=== PATIENT | female | born 1990 | race Caucasian/White ===

== ENCOUNTER 2020-01-29 11:46 | Outpatient (CLI) | payer OTHER, SELFPAY ==
--- NOTE | 2020-01-29 11:58 | ECG_ITS ---
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 Interpretive Statements NAME OF STUDY: TREADMILL STRESS TEST INDICATION: Chest Pain Baseline blood pressure of 105/71 mm Hg, heart rate 58 beats per minute and oxygen saturation 97%. EKG showed normal sinus rhythm, rightward axis with normal ST-Ts. The patient exercised for 11 minutes on a standard Pascual protocol. Patient attained a maximum heart rate of 181 beats per minute(94 % of the maximum predicted heart rate) with a blood pressure at the peak exercise of 164/54 mm Hg. The EKG at the peak exercise revealed sinus tachycardia with no significant ST-T wave changes. Patient did not have any chest pain or any significant arrhythmis with the exercise During the recovery phase, there were no new changes. Blood pressure at the end of the recovery phase was 149/88 mm Hg with a heart rate of 86 beats per minute and oxygen saturation 97%. CONCLUSION: 1. Normal EKG response to treadmill exercise. 2. No exercise-induced chest pain or cardiac arrhythmia 3. Excellent exercise tolerance, attained a maximum of 13.5 METs. Maximum VO2 of 47.3 mL/kg/min. 4. Baseline normal blood pressure with normal response to exercise. Electronically Signed On 01-31-2020 14:03:47 CDT by Mya Uribe M.D. [id number]
[2020-01-29 12:41] VITALS: BP 149/88; PULSE 88; BMI 26.1
== END 2020-01-29 11:47 | disposition home or self-care (01) ==
LOC: CDL 11:47
PROVIDERS: Family Provider Nurse Practitioner Family; Visit Provider Nurse Practitioner Family
DX: R07.89 Other chest pain (principal); R07.9 Chest pain, unspecified
CPT/HCPCS: 93017

== ENCOUNTER → 2020-12-29 07:34 | Outpatient (BNVA) | payer OTHER, SELFPAY | PROVIDERS: Family Provider Nurse Practitioner Family; Visit Provider Psychiatry & Neurology Neurology | DX: F33.0 Major depressive disorder, recurrent, mild (principal); F41.1 Generalized anxiety disorder; F43.10 Post-traumatic stress disorder, unspecified | CPT/HCPCS: 90791 ==

== ENCOUNTER → 2021-03-05 15:54 | Outpatient (BNVA) | payer OTHER, SELFPAY | PROVIDERS: Family Provider Nurse Practitioner Family; Visit Provider Registered Nurse Neonatal Intensive Care | DX: M25.579 Pain in unspecified ankle and joints of unspecified foot (principal) | CPT/HCPCS: 73610 ==

== ENCOUNTER 2021-04-22 12:19 | Emergency (ER) | payer OTHER, SELFPAY ==
[2021-04-22 12:27] VITALS: BP 112/80; PULSE 74; RESP 18; TEMP 37.1; O2SAT 97; BMI 29.2
--- NOTE | 2021-04-22 12:46 | XRR_ITS ---
PROCEDURE INFORMATION: Exam: XR Chest Exam date and time: 04/22/2021 12:46 PM Age: 31 years old Clinical indication: Other: Parasternal; Patient HX: Patient had bilateral breast biopsies 04/21/2021. C/O shortness of breath and chest pain; Fever. Covid symptoms; Additional info: Dyspnea/cough TECHNIQUE: Imaging protocol: XR of the chest. Views: 1 view. COMPARISON: [place] Chest 1 [place] [id number] 07/31/2017 1:23 PM FINDINGS: Lungs: Unremarkable. No consolidation. Pleural spaces: Unremarkable. No pleural effusion. No pneumothorax. Heart/Mediastinum: Unremarkable. No cardiomegaly. Bones/joints: Unremarkable. XR/XR chest 1V portable [id number] IMPRESSION: No acute findings.
--- NOTE | 2021-04-22 12:46 | ECG_ITS ---
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 Measurements Intervals [place] Rate: 68 P: 64 NH: 154 QRS: 81 QRSD: 89 T: 39 QT: 392 QTc: 418 Interpretive Statements SINUS RHYTHM No previous ECG available for comparison Electronically Signed On 04-24-2021 19:17:09 CDT by Mya Uribe M.D. [id number] f
[2021-04-22 13:27] VITALS: PULSE 87; RESP 16; O2SAT 97
--- NOTE | 2021-04-22 13:39 | CTR_ITS ---
PROCEDURE INFORMATION: Exam: CTA Chest With Contrast Exam date and time: 04/22/2021 1:39 PM Age: 31 years old Clinical indication: Pain; Chest pressure; Patient HX: PT is 1 day S/P breast biopsynow w C/O cp and cough this a. M. ; Additional info: Dyspena/chest pain TECHNIQUE: Imaging protocol: Computed tomographic angiography of the chest with contrast. 3D rendering (Not supervised by radiologist): MIP and/or 3D reconstructed images were created by the technologist. Radiation optimization: All CT scans at this facility use at least one of these dose optimization techniques: automated exposure control; mA and/or kV adjustment per patient size (includes targeted exams where dose is matched to clinical indication); or iterative reconstruction. Contrast material: OMNI 350; Contrast volume: 62 ml; Contrast route: INTRAVENOUS (IV); COMPARISON: CR XR chest 1V portable [id number] 04/22/2021 1:47 PM RADIATION DOSE METRICS: Total DLP (mGy-cm): 485.48 FINDINGS: Pulmonary arteries: There is no pulmonary embolus. Aorta: Unremarkable. No aortic aneurysm. No aortic dissection. Lungs: There is very mild ground-glass opacity in the dependently lung parenchyma compatible with atelectasis, trace edema or trace pneumonitis. No lobar consolidation. Pleural spaces: Unremarkable. No pneumothorax. No pleural effusion. Heart: The heart is enlarged. Mediastinal space: A small hiatal hernia is present. Lymph nodes: Subcentimeter lymph nodes are noted in the left axilla with a few punctate foci of gas suspected to be from a lymph node biopsy. Bones/joints: Unremarkable. No acute fracture. Soft tissues: There is soft tissue edema, poorly marginated fluid, clip and gas in the right breast compatible with the history of recent biopsy. CT/CT angio chest PE protcl [id number] IMPRESSION: 1. There is no pulmonary embolus. 2. There is very mild ground-glass opacity in the dependently lung parenchyma compatible with atelectasis, trace edema or trace pneumonitis. 3. There are findings consistent with the recent right breast biopsy and probable left axillary lymph node biopsy. Radiation Dose CTDIVOL = (mGy): DLP = 485.48 (mGy-cm)
--- NOTE | 2021-04-22 13:39 | ED_ITS ---
HPI - Chest Pain General: Chief Complaint: Chest Pain Stated Complaint: CP, SOB; BIOPSY X 2 YESTERDAY/ Time Seen by Provider: 04/22/21 12:45 History of Present Illness: HPI narrative: 31-year-old female presents to the emergency room with complaints of chest pain and shortness of breath. Began this morning. She had a biopsies bilaterally to the breast yesterday. She has not previously had any blood clots she not on any coagulants. She denies any fever she has had a bit of a cough this morning. No diarrhea. She has been vaccinated x2 for Covid she is not previously had Covid that she is aware of. MD complaint: chest discomfort Onset (ago): hour(s) Timing of current episode: episodic Prior episodes: No Onset: during rest Pain location: parasternal Pain radiation: none Severity: mild Quality: sharp Relieving factors: rest and other (Hello breathing) Exacerbating factors: inspiration Context: other (Recently had bilateral breast biopsies) Associated symptoms: Reports fever(s); Deny abdominal pain, diaphoresis, dyspnea, leg edema, nausea, palpitations, sense of impending doom, syncope or vomiting Treatment prior to arrival: none Review of Systems Const: Reports: fever(s); Denies: diaphoresis ENMT: Denies: throat pain, ear or mastoid pain, nasal discharge or nasal congestion Card: Denies: palpitations or syncope Resp: Denies: dyspnea GI: Denies: abdominal pain, nausea or vomiting : Denies: flank pain, difficulty voiding, dysuria, urinary frequency or urinary urgency Skin/Breast: Denies: rash or pruritus PFS ED PFSH: Social History Smoking and tobacco status: never smoked Physical Exam Const: COMMON NORMALS: no acute distress GENERAL APPEARANCE: cooperative and comfortable ORIENTATION/CONSCIOUSNESS: Yes awake, Yes oriented to person, Yes oriented to place and Yes oriented to time HENMT: COMMON NORMALS: normocephalic, atraumatic, hearing grossly normal bilaterally, external ears normal, EAC's normal, TM's normal bilaterally, Normal nasal mucous membranes and turbinates present, moist oral mucous membranes and oropharynx normal HEAD & SCALP: normocephalic and atraumatic NOSE: Normal nasal mucous membranes and turbinates present EXTERNAL EAR: Yes external ears normal EXTERNAL AUDITORY CANAL: EAC's normal TYMPANIC MEMBRANE: TM's normal bilaterally Neck/C-Spine: COMMON NORMALS: no JVD Resp: COMMON NORMALS: normal respiratory effort, No retractions, No use of accessory muscles and clear to auscultation bilaterally AUSCULTATION: clear to auscultation bilaterally Cardio: COMMON NORMALS: no JVD, regular rate, regular rhythm and No murmurs present (Cardio) RATE: regular rate RHYTHM: regular rhythm GI: COMMON NORMALS: Soft to palpation and No hepatosplenomegaly present AUSCULTATION: Yes normoactive bowel sounds PALPATION: Yes Soft to palpation, No Tenderness to palpation present (GI), No Guarding due to palpation present (GI) and Yes No hepatosplenomegaly present Extremity: COMMON NORMALS: normal to inspection, capillary refill normal, no clubbing, cyanosis or edema, no calf tenderness and no pedal edema Neuro: SENSORIUM/ORIENTATION: Yes oriented to person, Yes oriented to place and Yes oriented to time Skin: COMMON NORMALS: no rashes or lesions noted GENERAL SKIN EXAM: no rashes or lesions noted Course Vital Signs: Vital signs: Vital Signs Temperature 98.8 F 04/22/21 12:27 Pulse Rate 87 04/22/21 13:27 Respiratory Rate 16 04/22/21 13:27 Blood Pressure 112/80 04/22/21 12:27 Pulse Oximetry 97 04/22/21 13:27 MDM - Chest Pain MDM Narrative: Medical decision making narrative: Labs and imaging reviewed as on the chart. CT shows early groundglass opacities. Patient is doing well. She only has a cough at this point. Her sats are normal. Seems to be more pleuritic chest pain there is no PE. Suspect she probably has Covid self quarantine until results are back reviewed with her Lab Data: Labs: Lab Results 04/22/21 04/22/21 Range/Units 13:30 13:30 WBC 4.8 (4.0-10.0) 10^3/ uL RBC 4.30 (4.1-5.3) 10^6/u L Hgb 12.9 (11.5-15.3) g/dL Hct 41.8 (37.0-47.0) % MCV 97.2 (81-99) fl MCH 30.0 (28.0-34.0) pg MCHC 30.9 (30.0-36.0) g/dL RDW 18.3 H (12.1-15.1) % Plt Count 207 (130-400) 10^3/c mm MPV 11.3 H (7.4-10.4) fL Neut % (Auto) 43.0 % Lymph % (Auto) 42.1 % [place] % (Auto) 7.9 % Eos % (Auto) 6.0 % Baso % (Auto) 0.8 % Neut # (Auto) 2.08 (1.8-7.7) 10^3/u L Lymph # (Auto) 2.0 (0.8-4.8) 10^3/u L [place] # (Auto) 0.4 (0.2-0.9) 10^3/u L Eos # (Auto) 0.3 (0.0-0.8) 10^3/u L Baso # (Auto) 0.0 (0.0-0.1) 10^3/u L Nucleated RBC % (a uto) 0 % Nucleated RBCs # 0.0 /100WBC Sodium 142 (136-145) mmol/L Potassium 4.0 (3.5-5.1) mmol/L Chloride 104 (98-107) mmol/L Carbon Dioxide 31 H (22-29) mmol/L Anion Gap 11.0 (5-19) BUN 12 (6-20) mg/dL Creatinine 0.8 (0.5-0.9) mg/dL GFR Calculation 84.2 L (90-130) mL/min Glucose 64 L (65-115) mg/dL Calculated Osmolal ity 292 (285-295) mOsm/k g Calcium 8.9 (8.5-10.5) mg/dL Total Bilirubin 0.5 (0.15-1.2) mg/dL AST 17 (0-32) U/L ALT 12 (0-33) U/L Alkaline Phosphata se 81 (35-105) IU/L Total Protein 6.6 (6.6-8.7) g/dL Albumin 4.1 (3.5-5.2) g/dL Globulin 2.5 (1.3-4.6) g/dL Discharge Plan Discharge Patient Disposition: Home Clinical Impression: COVID-19 Condition: Stable Prescriptions: No Action alprazolam [Xanax] 0.25 mg tablet 0.25 mg PO BID RF: 0 Latuda 40 mg tablet 40 mg PO DAILY RF: 0 Discharge Orders: Discharge ED (Routine); Ordered 04/22/21 Ordered By: Angel Lin Referrals: Alissa Conte [Primary Care Provider] - Discharge Diet: Usual diet Discharge Activity: Increase activity as tolerated Patient Instructions: Opioid Safety Coding Level of Care Code ED 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
[2021-04-22 14:02] LABS: Basophils % 0.8 %; Eosinophils # 0.3 10^3/uL (0.0-0.8); Hematocrit 41.8 % (37.0-47.0); Hemoglobin 12.9 g/dL (11.5-15.3); Lymphocytes % 42.1 %; Mean Corpuscular HGB Conc 30.9 g/dL (30.0-36.0); Mean Corpuscular Volume 97.2 fl (81-99); Mean Platelet Volume 11.3 fL (7.4-10.4); Monocytes # 0.4 10^3/uL (0.2-0.9); Monocytes % 7.9 %; Neutrophils # 2.08 10^3/uL (1.8-7.7); Nucleated Red Blood Cells % 0 %; Platelet Count 207 10^3/cmm (130-400); Red Cell Distribution Width 18.3 % (12.1-15.1); White Blood Count 4.8 10^3/uL (4.0-10.0)
[2021-04-22] MEDS: iohexol 350 mg/mL 100 mL Btl IV (14:35)
[2021-04-22 14:46] LABS: Alanine Aminotransferase 12 U/L (0-33); Albumin Level 4.1 g/dL (3.5-5.2); Alkaline Phosphatase 81 IU/L (35-105); Aspartate Amino Transferase 17 U/L (0-32); Blood Urea Nitrogen 12 mg/dL (6-20); Calcium 8.9 mg/dL (8.5-10.5); Carbon Dioxide 31 mmol/L (22-29); Chloride 104 mmol/L (98-107); Globulin 2.5 g/dL (1.3-4.6); Glomerular Filtration Rate 84.2 mL/min (90-130); Glucose 64 mg/dL (65-115); Osmolality Calculated 292 mOsm/kg (285-295); Sodium 142 mmol/L (136-145); Total Bilirubin 0.5 mg/dL (0.15-1.2); Total Protein 6.6 g/dL (6.6-8.7)
[2021-04-22 18:03] LABS: SARS Covid-2 Antigen Negative (Negative)
[2021-04-24 16:59] LABS: Quest SARS-CoV-2 RNA NOT DETECTED (NOT DETECTED)
== END 2021-04-22 17:10 | disposition home or self-care (01) ==
PROVIDERS: Emergency Provider Family Medicine; PCP Nurse Practitioner Family
DX: U07.1 COVID-19 (principal)
CPT/HCPCS: 71045; 71275; 80053; 85025; 87426; 87635; 93005; 99283; Q9967

== ENCOUNTER 2022-03-02 07:06 | Outpatient (CLI) | payer OTHER, SELFPAY ==
--- NOTE | 2022-03-02 07:28 | MR_ITS ---
WS: [id number] MRI BRAIN WITH HIGH-RESOLUTION IMAGING THROUGH THE INTERNAL AUDITORY CANALS WITHOUT AND WITH CONTRAST HISTORY: SENSORINEURAL HEARING loss, tinnitus., Bilateral. COMPARISON: Noncontrast CT head 07/31/2017 TECHNIQUE: Multiplanar, multisequence imaging is performed through the brain. Additional 3 mm imaging performed in multiple planes through the internal auditory canal. Postcontrast imaging with 10 ml's of ProHance. No acute intracranial hemorrhage, midline shift, edema or mass effect. No prior infarct or signal abnormality. Nonenhancing markedly intense T1 signal posterior to the infundibulum and hypothalamus. There is no e nhancement in this follows fat signal on all sequences and is most consistent with a small lipoma in the hypothalamus. The pituitary bright spot appears to be in normal position. Signal abnormality exte nds over a width of 16 mm x 5 mm. Most consistent with a hypothalamic lipoma. Ventricles and extra-axial spaces are normal. No inferior displacement of cerebellar tonsils. Internal and external auditory canals: Unremarkable. Cranial nerves VII and VIII complexes: Unremarkable. No enhancement or mass. Cerebellopontine angles: Normal. Paranasal sinuses: Normal. Mastoid air cells: Normal. Calvarium and scalp: Normal. Visualized campo of [place] and dural venous sinuses demonstrate no abnormality. MR/MR iac's wo/w con* [id number] IMPRESSION: 1. Normal internal auditory canals. No mass or signal abnormality. 2. Small hypothalamic lipoma. 3. No small vessel ischemic disease.
== END 2022-03-02 07:07 | disposition home or self-care (01) ==
PROVIDERS: PCP Nurse Practitioner Family; Visit Provider Specialist
DX: H90.3 Sensorineural hearing loss, bilateral (principal); H93.13 Tinnitus, bilateral; D17.9 Benign lipomatous neoplasm, unspecified
CPT/HCPCS: 70553

== ENCOUNTER → 2022-05-21 10:17 | Outpatient (BNVA) | payer OTHER, SELFPAY | PROVIDERS: PCP Nurse Practitioner Family; Visit Provider Emergency Medicine | DX: J02.9 Acute pharyngitis, unspecified (principal) | CPT/HCPCS: 87071; 87880 ==

== ENCOUNTER 2023-03-22 12:47 | Outpatient (CLI) | payer OTHER, SELFPAY ==
--- NOTE | 2023-03-22 12:59 | XR_ITS ---
WS: [id number] XR lumbar spine 2-3V* [id number] REASON FOR EXAM: lumbar back pain x 1 day FINDINGS: Normal lumbar spine curvatures. No abnormality of the lumbar vertebrae. Mild to moderate narrowing of the L5/L1 disc space. The remaining disc spaces are intact and relative ly well preserved. No spondylolysis. 3 to 4 mm of anterolisthesis of L5 in relation to L4. IMPRESSION: Degenerative spondylosis of the lumbar spine as above.
== END 2023-03-22 12:48 | disposition home or self-care (01) ==
PROVIDERS: PCP Nurse Practitioner Family; Visit Provider Nurse Practitioner
DX: M47.896 Other spondylosis, lumbar region (principal); M54.50 Low back pain, unspecified
CPT/HCPCS: 72100

== ENCOUNTER 2023-05-15 19:18 | Emergency (ER) | payer OTHER, SELFPAY ==
[2023-05-15 19:20] VITALS: BP 125/88; PULSE 86; RESP 17; TEMP 36.9; O2SAT 100; BMI 27.3
--- NOTE | 2023-05-15 19:28 | ECG_ITS ---
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 Measurements Intervals [place] Rate: 76 P: 71 MI: 152 QRS: 86 QRSD: 80 T: 46 QT: 349 QTc: 394 Interpretive Statements SINUS RHYTHM LEFT ATRIAL ENLARGEMENT [-0.15mV P-WAVE IN V1/V2] MODERATE T-WAVE ABNORMALITY, CONSIDER ANTERIOR ISCHEMIA [-0.1+ mV T-WAVE IN V3/V4] Compared to ECG 04/22/2021 15:53:26 Atrial abnormality now present T-wave abnormality now present Possible ischemia now present Electronically Signed On 05-15-2023 22:33:23 CDT by Hong Harvey M.D. [id number] f
--- NOTE | 2023-05-15 19:41 | XRR_ITS ---
PROCEDURE INFORMATION: Exam: XR Chest Exam date and time: 05/15/2023 7:56 PM Age: 33 years old Clinical indication: Chest wall pain; Additional info: Chest pain TECHNIQUE: Imaging protocol: Radiologic exam of the chest. Views: 1 view. COMPARISON: CR XR chest 1V portable [id number] 04/22/2021 1:47 PM FINDINGS: Lungs: Mild atelectasis in the lung bases. The lungs are otherwise clear. Pleural spaces: Unremarkable. No pleural effusion. No pneumothorax. Heart/Mediastinum: Unremarkable. No cardiomegaly. Bones/joints: Unremarkable. XR/XR chest 1V portable [id number] IMPRESSION: No acute findings.
--- NOTE | 2023-05-15 19:41 | W.ED.CHESTPA ---
HPI - Chest Pain General: Chief Complaint: Chest Pain Stated Complaint: chest pain, tightness in chest Time Seen by Provider: 05/15/23 19:22 History of Present Illness: 33-year-old female presents emerged department complaints of lower right chest pain and intermittent right scapular pain. She states the pain started approximate hour prior to arrival. She states that it is a 6 out of 10 sharp stabbing pain. She denies nausea, vomiting, shortness of breath dizziness or lightheaded feeling. She states she does have a lot of stress in her life and recently had a family member . She states nothing seems to make this discomfort better and nothing seems to make it worse. She states she does have a history of bipolar disorder as well as intermittent panic attacks. She states she feels like this may very well be a panic attack causing her discomfort. Review of Systems General: Reports: 10 or more systems reviewed and unremarkable except in HPI and below Card: Reports: chest pain PFS ED PFSH: Medical History Psychiatric care Social History Smoking and tobacco status: never smoked Second hand smoke exposure: No Smoking risk assessment/counseling performed?: No Alcohol intake: current Alcohol intake frequency: holidays/special occasions only Alcohol type: wine Desire information about alcohol rehabilitation?: No Counseling given: No Substance/Drug Use: never Desire information about substance/drug rehabilitation?: No Counseling given: No Physical Exam Const: COMMON NORMALS: no acute distress, patient oriented x3 and alert HENMT: COMMON NORMALS: normocephalic, atraumatic, Normal nasal mucous membranes and turbinates present and moist oral mucous membranes HEAD & SCALP: normocephalic and atraumatic NOSE: Normal nasal mucous membranes and turbinates present Eye: COMMON NORMALS: Equal, round and reactive pupils present and EOMs intact bilaterally PUPIL: Yes Equal, round and reactive pupils present Neck/C-Spine: COMMON NORMALS: full ROM, supple, no meningeal signs and no JVD Chest: COMMONS NORMALS: normal inspection of the chest and normal palpation of entire chest wall Resp: COMMON NORMALS: normal respiratory effort, No retractions and clear to auscultation bilaterally AUSCULTATION: clear to auscultation bilaterally Cardio: COMMON NORMALS: no JVD, regular rate, regular rhythm, S1 normal heart sound present, S2 normal heart sound present and Peripheral pulses 2+ throughout RATE: regular rate RHYTHM: regular rhythm HEART SOUNDS: S1 normal heart sound present and S2 normal heart sound present PERIPHERAL PULSES: Peripheral pulses 2+ throughout GI: COMMON NORMALS: Normal to inspection, nondistended, normoactive bowel sounds present, Soft to palpation and non-tender PALPATION: Yes Soft to palpation Back/Pelvis: COMMON NORMALS: thoracic and lumbar spine normal to inspection, no thoracic nor lumbar tenderness, thoraco-lumbar ROM normal and straight leg raise negative bilaterally Extremity: COMMON NORMALS: normal to inspection, full ROM and capillary refill normal Neuro: COMMON NORMALS: patient oriented x3, moves all extremities and no sensory deficits noted SENSORIUM/ORIENTATION: Yes alert MENINGEAL SIGNS: Yes no meningeal signs Skin: COMMON NORMALS: no rashes or lesions noted and turgor normal GENERAL SKIN EXAM: no rashes or lesions noted and turgor normal Course Vital Signs: Vital signs: Vital Signs Temperature 98.4 F 05/15/23 19:20 Pulse Rate 86 05/15/23 19:20 Respiratory Rate 17 05/15/23 19:20 Blood Pressure 125/88 05/15/23 19:20 Pulse Oximetry 100 05/15/23 19:20 Oxygen Delivery Me thod Room Air 05/15/23 19:20 MDM - Chest Pain Medical Decision Making Physical exam completed and documented, I will obtain twelve-lead EKG, chest x-ray and laboratory evaluation I suspect this is most likely related to the patient's increased stress and we will have her follow-up with her primary care provider as all results come back unless otherwise found to have abnormalities. Differential Diagnosis Likely acute myocardial infarction (Anxiety, panic attack, musculoskeletal pain.) Medical Records I reviewed the patient's medical records. Lab Data I reviewed the patient's lab results. 05/15/23 19:51 05/15/23 19:51 Radiology Impressions Chest X-Ray 05/15/23 19:41 IMPRESSION: No acute findings. Laboratory Results WBC 6.22 10^3/uL (3.29-11.43) 05/15/23 19:51 RBC 4.53 10^6/uL (3.85-5.65) 05/15/23 19:51 Hgb 13.90 g/dL (11.27-16.99) 05/15/23 19:51 Hct 39.5 % (36-47) 05/15/23 19:51 MCV 87.2 fl (85-98) 05/15/23 19:51 MCH 30.7 pg (27-33) 05/15/23 19:51 MCHC 35.2 g/dL (30-55) 05/15/23 19:51 RDW 11.9 % (12.1-15.1) L 05/15/23 19:51 Plt Count 242 10^3/cmm (157-399) 05/15/23 19:51 MPV 10.3 fL (7.4-10.4) 05/15/23 19:51 Neut % (Auto) 38.1 % 05/15/23 19:51 Lymph % (Auto) 48.7 % 05/15/23 19:51 [place] % (Auto) 7.6 % 05/15/23 19:51 Eos % (Auto) 4.8 % 05/15/23 19:51 Baso % (Auto) 0.8 % 05/15/23 19:51 Neut # (Auto) 2.37 10^3/uL (1.8-7.7) 05/15/23 19:51 Lymph # (Auto) 3.0 10^3/uL (0.8-4.8) 05/15/23 19:51 [place] # (Auto) 0.5 10^3/uL (0.2-0.9) 05/15/23 19:51 Eos # (Auto) 0.3 10^3/uL (0.0-0.8) 05/15/23 19:51 Baso # (Auto) 0.1 10^3/uL (0.0-0.1) 05/15/23 19:51 Nucleated RBC % (auto) 0 % 05/15/23 19:51 Nucleated RBCs # 0.0 /100WBC 05/15/23 19:51 Sodium 142 mmol/L (136-145) 05/15/23 19:51 Potassium 3.9 mmol/L (3.5-5.1) 05/15/23 19:51 Chloride 104 mmol/L (98-107) 05/15/23 19:51 Carbon Dioxide 27 mmol/L (22-29) 05/15/23 19:51 Anion Gap 14.9 (5-19) 05/15/23 19:51 BUN 16 mg/dL (6-20) 05/15/23 19:51 Creatinine 1.0 mg/dL (0.5-0.9) H 05/15/23 19:51 GFR Calculation 64.3 mL/min (90-130) L 05/15/23 19:51 Glucose 85 mg/dL (65-115) 05/15/23 19:51 Calculated Osmolality 294 mOsm/kg (285-295) 05/15/23 19:51 Calcium 9.4 mg/dL (8.5-10.5) 05/15/23 19:51 Total Bilirubin 0.3 mg/dL (0.15-1.2) 05/15/23 19:51 AST 18 U/L (0-32) 05/15/23 19:51 ALT 13 U/L (0-33) 05/15/23 19:51 Alkaline Phosphatase 94 U/L (35-105) 05/15/23 19:51 Troponin T Baseline < 6 ng/L (0-10) 05/15/23 19:51 Total Protein 7.2 g/dL (6.6-8.7) 05/15/23 19:51 Albumin 4.8 g/dL (3.5-5.2) 05/15/23 19:51 Globulin 2.4 g/dL (1.3-4.6) 05/15/23 19:51 HCG, Qual Negative (Negative) 05/15/23 19:41 Urine Color Yellow (Yellow) 05/15/23 19:41 Urine Appearance Clear (CLEAR) 05/15/23 19:41 Urine pH 6 (5-7) 05/15/23 19:41 Ur Specific [place] 1.030 (1.005-1.030) 05/15/23 19:41 Urine Protein Neg (Negative) 05/15/23 19:41 Urine Glucose (UA) Norm (Normal) 05/15/23 19:41 Urine Ketones Negative (Negative) 05/15/23 19:41 Urine Blood Neg (Negative) 05/15/23 19:41 Urine Nitrate Negative (Negative) 05/15/23 19:41 Urine Bilirubin Neg (Negative) 05/15/23 19:41 Urine Urobilinogen Norm mg/dL (Negative) 05/15/23 19:41 Ur Leukocyte Esterase Negative (Negative) 05/15/23 19:41 All radiology interpretation(s) finalized by discharge ED provider radiology interpretation(s): FINDINGS: Lungs: Mild atelectasis in the lung bases. The lungs are otherwise clear. Pleural spaces: Unremarkable. No pleural effusion. No pneumothorax. Heart/Mediastinum: Unremarkable. No cardiomegaly. Bones/joints: Unremarkable. 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
[2023-05-15 19:57] LABS: Basophils # 0.1 10^3/uL (0.0-0.1); Basophils % 0.8 %; Eosinophils # 0.3 10^3/uL (0.0-0.8); Eosinophils % 4.8 %; Hematocrit 39.5 % (36-47); Lymphocytes % 48.7 %; Mean Corpuscular HGB Conc 35.2 g/dL (30-55); Mean Corpuscular Hemoglobin 30.7 pg (27-33); Mean Corpuscular Volume 87.2 fl (85-98); Mean Platelet Volume 10.3 fL (7.4-10.4); Monocytes # 0.5 10^3/uL (0.2-0.9); Monocytes % 7.6 %; Neutrophils # 2.37 10^3/uL (1.8-7.7); Neutrophils % 38.1 %; Nucleated Red Blood Cells % 0 %; Platelet Count 242 10^3/cmm (157-399); Red Blood Count 4.53 10^6/uL (3.85-5.65); Red Cell Distribution Width 11.9 % (12.1-15.1); White Blood Count 6.22 10^3/uL (3.29-11.43)
[2023-05-15] MEDS: ketorolac 30 mg/mL INJ IVP (20:00)
[2023-05-15 20:06] LABS: HCG Qualitative Urine. Negative (Negative)
[2023-05-15 20:18] LABS: Add Urine Microscopic? NO; Charge for UA Resulting for Rev
[2023-05-15 20:19] LABS: Alanine Aminotransferase 13 U/L (0-33); Albumin Level 4.8 g/dL (3.5-5.2); Alkaline Phosphatase 94 U/L (35-105); Anion Gap 14.9 (5-19); Aspartate Amino Transferase 18 U/L (0-32); Blood Urea Nitrogen 16 mg/dL (6-20); Calcium 9.4 mg/dL (8.5-10.5); Carbon Dioxide 27 mmol/L (22-29); Chloride 104 mmol/L (98-107); Globulin 2.4 g/dL (1.3-4.6); Glomerular Filtration Rate 64.3 mL/min (90-130); Glucose 85 mg/dL (65-115); Osmolality Calculated 294 mOsm/kg (285-295); Potassium 3.9 mmol/L (3.5-5.1); Sodium 142 mmol/L (136-145); Total Bilirubin 0.3 mg/dL (0.15-1.2); Total Protein 7.2 g/dL (6.6-8.7)
[2023-05-15 20:20] LABS: Bilirubin Urine Neg (Negative); Blood Urine Neg (Negative); Glucose Urine UA Norm (Normal); Ketones Urine Negative (Negative); Leukocyte Esterase Urine Negative (Negative); Nitrate Urine Negative (Negative); Protein Urine Neg (Negative); Urine Appearance Clear (CLEAR); Urine Color Yellow (Yellow); Urobilinogen Urine Norm (Negative); pH Urine 6 (5-7)
[2023-05-15 20:21] LABS: Troponin(5th) Baseline < 6 ng/L (0-10)
== END 2023-05-15 21:45 | disposition home or self-care (01) ==
PROVIDERS: Emergency Provider Internal Medicine; PCP Nurse Practitioner Family
DX: R07.89 Other chest pain (principal)
CPT/HCPCS: 71045; 80053; 81003; 81025; 84484; 85025; 93005; 96374; 99285; J1885

== ENCOUNTER → 2023-06-13 17:49 | Outpatient (BNVA) | payer OTHER, SELFPAY | PROVIDERS: PCP Nurse Practitioner Family; Visit Provider Nurse Practitioner | DX: R05.9 Cough, unspecified (principal) | CPT/HCPCS: 87400; 87426 ==

== ENCOUNTER → 2023-09-26 14:50 | Outpatient (BNVA) | payer OTHER, SELFPAY | PROVIDERS: PCP Nurse Practitioner Family; Visit Provider Registered Nurse Neonatal Intensive Care | DX: J02.9 Acute pharyngitis, unspecified (principal) | CPT/HCPCS: 87880 ==

== ENCOUNTER → 2024-09-15 07:54 | Outpatient (BNVA) | payer OTHER, SELFPAY | PROVIDERS: PCP Nurse Practitioner Family; Visit Provider Emergency Medicine | DX: J10.1 Influenza due to other identified influenza virus with other respiratory manifestations (principal) | CPT/HCPCS: 87400 ==

== ENCOUNTER 2025-07-12 07:53 | Outpatient (CLI) | payer OTHER, SELFPAY ==
--- NOTE | 2025-07-12 08:08 | NM_ITS ---
WS: [id number] NUCLEAR MEDICINE HIDA SCAN WITH GALLBLADDER EJECTION FRACTION HISTORY: RUQ PAIN COMPARISON: None available. TECHNIQUE: The patient was intravenously injected with 7.7 mCi of TC99m Mebrofenin. Immediate imaging over the right upper quadrant was followed by 5 minute image and additional images for a total of 60 minutes. Normal uptake of radiotracer throughout the liver. Activity identified in the gallbladder at 15 minutes and well distended by 60 minutes. Activity in the proximal small bowel was seen by 20 minutes. Good washout of the radiotracer from the liver by 60 minutes. The patient then drank 8 ounces of Ensure Plus. Ejection fraction at 60 minutes was 77%. Normal GB ejection fraction is 35-75%. Post fatty meal symptoms: None. NM/NM hepatobiliary w phar* [id number] IMPRESSION: 1. Normal HIDA scan. 2. Normal gallbladder ejection fraction.
== END 2025-07-12 07:54 | disposition home or self-care (01) ==
PROVIDERS: PCP Nurse Practitioner Family; Visit Provider Nurse Practitioner Family
DX: K52.9 Noninfective gastroenteritis and colitis, unspecified (principal); R10.11 Right upper quadrant pain
CPT/HCPCS: 78227; A9537

== ENCOUNTER 2025-07-14 11:31 | Emergency (ER) | payer OTHER, SELFPAY ==
[2025-07-14] VITALS (8 sets, daily range): BP systolic 97–121; BP diastolic 56–84; PULSE 104–133; RESP 18; TEMP 37.5; O2SAT 94–100; BMI 23.3
--- NOTE | 2025-07-14 11:38 | CT_ITS ---
WS: [id number] CT HEAD TECHNIQUE: Noncontrast CT of the head obtained from the skullbase to the vertex. CLINICAL INFORMATION: Headache vision changes COMPARISON: CT head 2016 and MRI 2021 DLP: 1164.[address] scans at [facility] use at least one of these dose optimization techniques: automated exposure control; mA and/or kV adjustment per patient size (includes targeted exams where dose is matched to clinical indication); or iterative reconstruction. FINDINGS: No evidence of intracranial hemorrhage or mass effect. Ventricular system and basal cisterns are patent. No extra-axial fluid collections. No evidence of mass or mass effect. Normal friedman-white differentiation. Paranasal sinuses and mastoid air cells are well aerated. .Normal visualized soft tissues. CT/CT head wo con* [id number] IMPRESSION: 1. No evidence of intracranial hemorrhage or mass effect. 2. No acute intracranial findings.
--- NOTE | 2025-07-14 12:23 | ED_ITS ---
HPI - Headache 2 General: Chief Complaint: Headache Stated Complaint: feels like she is being hit in head,blurred vision Time Seen by Provider: 07/14/25 11:41 History of Present Illness: 35-year-old female presents emergency ro om with complaint of headaches. She used to have headaches that were fairly severe but she has not had one for nearly 7 or 8 years. No precipitating event or trauma. Describes headaches as being based around the right occipital region she has some mild photophobia with that and nausea. She states she feels like something is hitting her head began at night around 2 AM woke her up from sleep. She has tried some [id number] medications with no relief. No vomiting. She has had unexplained weight loss of the last year of nearly 50 pounds and is in the process of having a workup but they have not found any cause to this point. She denies any fever sweats chills nausea vomiting diarrhea no chest or abdominal pain. She previously has had a hysterectomy had a pyloric stenosis and thinks she may have had intussusception when she was younger. Associated symptoms: Deny chest pain, fever(s) or rash Related Data Home Medications ?Medication ?Instructions ?Recorded ?Confirmed acetaminophen 500 mg tablet 500 mg PO Q6H PRN Pain 11/0307/16/25 albuterol sulfate 90 mcg/actuation See Rx Instructions .Route .COMPLEX 07/14/25 07/16/25 aerosol inhaler alprazolam 0.5 mg tablet 0.5 mg PO DAILY PRN Anxiety 07/14/25 07/16/25 diclofenac sodium 1 % topical gel See Rx Instructions .Route .COMPLEX 07/14/25 07/16/25 naproxen sodium 220 mg tablet 220 mg PO Q12H PRN Pain 07/14/25 07/16/25 (Aleve) Allergies Allergy/AdvReac Type Severity Reaction Status Date / Time levofloxacin (From Levaquin) Allergy Severe whole body Verified 07/16/25 18:21 rash tramadol Allergy Severe seizures Verified 07/16/25 18:21 codeine Allergy Mild Migraine Verified 07/16/25 18:21 and vomit mushroom Allergy Mild lips Verified 07/16/25 18:21 tingle; trouble swallowing Penicillins Allergy Mild Migraine Verified 07/16/25 18:21 and vomit Haldol AdvReac Severe Burning Uncoded 07/16/25 18:21 feeling Review of Systems 2 Const: Denies: fever(s) or chills Card: Denies: chest pain Resp: Denies: dyspnea GI: Denies: abdominal pain : Denies: dysuria, urinary frequency or urinary urgency Musc: Denies: neck pain or back pain Skin/Breast: Denies: rash PFSH ED 2 PFSH: Social History Smoking and tobacco/nicotine status: never used tobacco/nicotine Second hand smoke exposure: No Alcohol intake: current Alcohol intake frequency: holidays/special occasions only Alcohol type: wine Substance/Drug Use: never Physical Exam 2 Const: COMMON NORMALS: no acute distress GENERAL APPEARANCE: cooperative and comfortable ORIENTATION/CONSCIOUSNESS: Yes awake, Yes oriented to person, Yes oriented to place and Yes oriented to time HENMT: COMMON NORMALS: normocephalic, atraumatic and hearing grossly normal bilaterally HEAD & SCALP: normocephalic and atraumatic Resp: COMMON NORMALS: normal respiratory effort, No retractions, No use of accessory muscles and clear to auscultation bilaterally AUSCULTATION: clear to auscultation bilaterally Cardio: COMMON NORMALS: regular rate, regular rhythm and No murmurs present (Cardio) RATE: regular rate RHYTHM: regular rhythm GI: COMMON NORMALS: Soft to palpation and No hepatosplenomegaly present A USCULTATION: Yes normoactive bowel sounds PALPATION: Yes Soft to palpation, No Tenderness to palpation present (GI), No Guarding due to palpation present (GI) and Yes No hepatosplenomegaly present Extremity: COMMON NORMALS: normal to inspection, capillary refill normal, no clubbing, cyanosis or edema, no calf tenderness and no pedal edema Neuro: SENSORIUM/ORIENTATION: Yes oriented to person, Yes oriented to place and Yes oriented to time Skin: COMMON NORMALS: no rashes or lesions noted GENERAL SKIN EXAM: no rashes or lesions noted Course 2 Vital Signs: Vital signs: Vital Signs Temperature 99.5 F 07/14/25 11:35 Pulse Rate 104 H 07/14/25 15:22 Respiratory Rate 18 07/14/25 13:49 Blood Pressure 97/56 07/14/25 15:22 Pulse Oximetry 95 07/14/25 15:22 Oxygen Delivery Me thod Room Air 07/14/25 15:07 MDM - Headache Medical Decision Making Medical decision making Social determinants: None I reviewed the patient's medical record. I reviewed the patient's current home meds. Alternate historians: None Differential diagnosis: Migraine with aura, subarachnoid hemorrhage, intracranial mass, meningitis Lab Review: Labs reviewed as found in the chart. White count normal chemistries unremarkable Imaging: CT head negative Assessment of risk Level of risk: Moderate Hospitalization considerations: Pending results of CT head may need further evaluation and hospitalization if were to have intracranial bleeding or any intracranial mass or meningitis Reexamination: Repeat exam headache improved. Assessment and plan: Patient does have sinus tachycardia she states that is not unusual for her she is feeling quite a bit better. On exam she has no meningeal signs CT head is negative will discharge her home and have her follow-up with a 72-hour Holter with her primary care doctor she is feeling much better would prefer to go home at this time. Your symptoms today are due to migraine with aura. Lab Data 07/14/25 13:09 07/14/25 13:[address] 07/14/25 11:38 IMPRESSION: 1. No evidence of intracranial hemorrhage or mass effect. 2. No acute intracranial findings. Laboratory Results WBC 3.85 10^3/uL (3.29-11.43) 07/14/25 13:09 RBC 4.06 10^6/uL (3.85-5.65) 07/14/25 13:09 Hgb 12.20 g/dL (11.27-16.99) 07/14/25 13:09 Hct 35.4 % (36-47) L 07/14/25 13:09 MCV 87.2 fl (85-98) 07/14/25 13:09 MCH 30.0 pg (27-33) 07/14/25 13:09 MCHC 34.5 g/dL (30-55) 07/14/25 13:09 RDW 11.9 % (12.1-15.1) L 07/14/25 13:09 Plt Count 156 10^3/cmm (157-399) L 07/14/25 13:09 MPV 10.8 fL (7.4-10.4) H 07/14/25 13:09 Neut % (Auto) 78.3 % 07/14/25 13:09 Lymph % (Auto) 9.4 % 07/14/25 13:09 [place] % (Auto) 9.9 % 07/14/25 13:09 Eos % (Auto) 1.6 % 07/14/25 13:09 Baso % (Auto) 0.5 % 07/14/25 13:09 Neut # (Auto) 3.02 10^3/uL (1.8-7.7) 07/14/25 13:09 Lymph # (Auto) 0.4 10^3/uL (0.8-4.8) L 07/14/25 13:09 [place] # (Auto) 0.4 10^3/uL (0.2-0.9) 07/14/25 13:09 Eos # (Auto) 0.1 10^3/uL (0.0-0.8) 07/14/25 13:09 Baso # (Auto) 0.0 10^3/uL (0.0-0.1) 07/14/25 13:09 Nucleated RBC % (auto) 0 % 07/14/25 13:09 Nucleated RBCs # 0.0 /100WBC 07/14/25 13:09 Sodium 138 mmol/L (136-145) 07/14/25 13:09 Potassium 3.9 mmol/L (3.5-5.1) 07/14/25 13:09 Chloride 104 mmol/L (98-107) 07/14/25 13:09 Carbon Dioxide 22 mmol/L (22-29) 07/14/25 13:09 Anion Gap 15.9 (5-19) 07/14/25 13:09 BUN 12 mg/dL (6-20) 07/14/25 13:09 Creatinine 0.9 mg/dL (0.5-0.9) 07/14/25 13:09 GFR Calculation 71.7 mL/min (90-130) L 07/14/25 13:09 Glucose 91 mg/dL (65-115) 07/14/25 13:09 Calculated Osmolality 285 mOsm/kg (285-295) 07/14/25 13:09 Calcium 8.9 mg/dL (8.5-10.5) 07/14/25 13:09 Magnesium 1.7 mg/dL (1.7-2.3) 07/14/25 13:09 Total Bilirubin 0.8 mg/dL (0.15-1.2) 07/14/25 13:09 AST 16 U/L (0-32) 07/14/25 13:09 ALT 12 U/L (0-33) 07/14/25 13:09 Alkaline Phosphatase 70 U/L (35-105) 07/14/25 13:09 Total Protein 6.8 g/dL (6.6-8.7) 07/14/25 13:09 Albumin 4.2 g/dL (3.5-5.2) 07/14/25 13:09 Globulin 2.6 g/dL (1.3-4.6) 07/14/25 13:09 TSH 0.71 uIU/mL (0.27-4.20) 07/14/25 13:09 All radiology interpretation(s) finalized by discharge Discharge Plan Discharge Patient Disposition: Home Clinical Impression: Migraine, Sinus tachycardia Condition: Stable Prescriptions: No Action acetaminophen 500 mg Tablet 500 mg PO Q6H PRN (Reason: Pain) alprazolam 0.5 mg tablet 0.5 mg PO DAILY PRN (Reason: Anxiety) naproxen sodium [Aleve] 220 mg Tablet 220 mg PO Q12H PRN (Reason: Pain) albuterol sulfate 90 mcg/actuation HFA aerosol inhaler See Rx Instructions .ROUTE .COMPLEX Rx Instructions: INHALE 2 PUFFS BY MOUTH 15 TO 30 MINUTES BEFORE EXERCISE DIRECTED. diclofenac sodium 1 % gel See Rx Instructions .ROUTE .COMPLEX Rx Instructions: APPLY 2 GRAMS TOPICALLY TO THE AFFECTED AREA FOUR TIMES DAILY NEEDED FOR PAIN. Discharge Orders: Discharge ED (Routine); Ordered 07/14/25 Ordered By: Angel Lin Referrals: Alissa Conte FNP [Primary Care Provider, Family Practice] Discharge Diet: Usual diet Discharge Activity: Increase activity as tolerated Patient Instructions: Opioid Safety, Pain Management, Patient Portal & Elizabeth Instructions Activity Restrictions/Additional Instructions: Thank you for choosing [facility] for your healthcare needs today. It is very important that you follow up as instructed or that you return to the Emergency Department should you have concerns or if your condition changes or worsens in any way. Emergency department visits are focused on emergent conditions, in some cases you may require further evaluation on an outpatient basis. You were seen in the emergency room with a headache. You did respond to the medications given. We also noted you had a rapid heart rate. It improved with IV fluids. We did recommend that you have a 72-hour Holter monitor and follow- up with this with your primary care doctor. If your headache recurs you can return to the emergency room or follow-up with your primary care doctor. (Please note that included in your discharge packet is information concerning opioid safety and pain management. This information is given to all patients were discharged from the ER regardless of their discharge diagnosis or the medicines they usually take or are prescribed.) Print Language: Bolivian Coding Level of Care Code ED Live Truck Operator for Parvin Beyer
--- OUTSIDE RECORDS SUMMARY | 2025-07-14 12:23 | XMS_ITS | Encounter Summary ---
Author Organization [facility] Address [address] [place] [address] Care Team Providers Care Pot Puller Name Role Phone Marsha Kim MD Primary Care Provider Encounter Details Date Type Department Care Team (Late st Contact Info) Description 07/13/2025 External Device Data [place] ABSTRACTION Provider, Abstract NO ADDRESS ON FILE Social History Tobacco Use Types Packs/Day Years Used Date Smoking Tobacco: Never Smokeless Tobacco: Never Alcohol Use Standard Drinks/Week Comments Yes 0 (1 standard drink = 0.6 oz pur e alcohol) occasional Feeling Safe Answer Date Recorded Are you in a relationship wi th someone who hurts you emotionally and/or physically? No 03/22/2023 Comments No Sex and Gender Information Value Date Recorded Sex Assigned at Not on file Legal Sex Female 2:31 AM STONE DRESSER Gender Identity Not on file Sexual Orientation Not on file documented as of this encounter Plan of Treatment Upcoming Encounters Date Type Department Care Team (Late Contact Info) Description 05/30/2026 2:30 PM CDT Office Visit [facility] O[facility] [place] [address] [facility] [address] [place] [address] Trena Dowd MD [address] [facility] [address] [place] [phone] documented as of this encounter Visit Diagnoses Not on filedocumented in this encounter Additional Health Concerns Assessment Noted Time PHQ-9 Depression Total Score: 2 09/21/19 20 5:00 PM STONE DRESSER documented as of this encounter Care Teams Pot Puller Relationship Specialty Start Date End Date Marsha Kim MD [address] [phone] PCP - General Family Practice 10/11/23 documented as of this encounter
--- OUTSIDE RECORDS SUMMARY | 2025-07-14 12:23 | XMS_ITS | Clinical Summary ---
Author Organization [facility] Address [address] [phone] Care Team Providers Care Ramp Flight Attendant Name Role Phone Marsha Kim MD Primary Care Provider Allergies Active Allergy Reactions Criticality Noted Date Comments Codeine Nausea and Vomiting Low 03/12/2017 Levofloxacin Rash Low 03/12/2017 Mushroom Other (See Comments) Low 03/05/2021 Penicillins Nausea and Vomiting Low 03/12/2017 As a child/unsure about ceph Tramadol Seizure High 03/12/2017 Medications acetaminophen (TYLENOL) 325 mg tablet Take 325 mg by mouth. Active promethazine (PHENERGAN) 25 mg tabletIndications: Viral gastroenteritis Take 1 Tablet (25 mg) by mouth every 8 hours as needed for Nausea/Emesis. 60 Tablet 03/05/20 24 Active Additional Information Patient not taking.Reported on 06/18/2025 albuterol sulfate HFA 90 mcg/actuation aerosol inhalerIndications :Exercise-induced asthma Take 2 Puffs by inhalation see administration instructions. Take 15-30 minutes before exercise 8.5 Gram 2 10/16/19 25 Active ALPRAZolam (Xanax) 0.5 mg tabletIndications: Generalized anxiety disorder Take 1 Tablet (0.5 mg) by mouth 1 time daily as needed for Anxiety. 30 Tablet 1 10/16/19 25 Active sucralfate (CARAFATE) 1 gram tabletIndications: Epigastric abdominal pain Take 1 Tablet (1 Gram) by mouth 4 times daily before meals and at bedtime. 120 Tablet 2 10/30/19 25 Active Additional Information Patient not taking.Reported on 06/18/2025 ondansetron (Zofran) 4 mg TabletIndications: Nausea Take 1 Tablet (4 mg) by mouth every 8 hours as needed for Nausea/Emesis. 30 Tablet 2 10/30/19 25 Active sertraline (ZOLOFT) 50 mg tabletIndications: Generalized anxiety disorder Take 1 Tablet (50 mg) by mouth daily. 100 Tablet 3 10/30/19 25 Active meloxicam (MOBIC) 15 mg tablet Take 1 Tablet (15 mg) by mouth daily. 30 Tablet 2 12/25/19 25 Active Additional Information Patient not taking.Reported on 06/18/2025 diclofenac sodium (VOLTAREN) 1 % gelIndications:Nec k pain Apply 2 Grams to affected area 4 times daily. 100 Gram 3 06/16/20 25 Active diclofenac sodium (VOLTAREN) 1 % gel APPLY 2 GRAMS TO AFFECTED AREAS THREE TIMES DAILY FOR 7 DAYS. 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 Chronic post-traumatic stress disorder 7 Overview (12/08/2020): From [facility]. Resolved Problems Problem Noted Date Diagnosed Date Resolved Date Seizure 10/03/2020 Encounters Date Type Department Care Team Description 07/13/2025 External Device Data STL ABSTRACTION Provider, Abstract 07/06/2025 External Device Data STL ABSTRACTION Provider, Abstract 06/29/2025 External Device Data STL ABSTRACTION Provider, Abstract 06/25/[address] [phone] Anna Vang, TRANSITION PROGRAM MANAGER Referral ([place] Hepatobiliary Scan) 06/24/2025 8:13 AM CHARM FILTER OPERATOR HELPER - 06/24/2025 11:59 PM CHARM FILTER OPERATOR HELPER Hospital Encounter [facility] [address] [phone] Alissa Conte FNP Discharge Disposition: Home or Self Care 06/24/2025 Orders Only [address] [phone] CieraAnnan, TRANSITION PROGRAM MANAGER Chronic diarrhea (Primary Dx); RUQ abdominal pain 06/18/2025 11:40 AM CHARM FILTER OPERATOR HELPER Office Visit [address] [phone] Alissa Conte FNP Early satiety (Primary Dx); Abnormal weight loss; Family history of thyroid disease 06/16/[address] [phone] CieraAnna, TRANSITION PROGRAM MANAGER Neck pain (Primary Dx) 05/25/2025 External Device Data STL ABSTRACTION Provider, Abstract 04/30/2025 4:25 PM CDT Procedure visit [facility] [address] [facility] [address] [place] [phone] Need for influenza vaccination (Primary Dx) 04/27/2025 External Device Data STL ABSTRACTION Provider, Abstract from Last 3 Months Immunizations Immunization Administration Dates Next Due (ADACEL/BOOSTRIX)(10 YR UP) TDAP VACCINE, 0.5ML, IM 03/21/2018,03/21/2018,08/10/2010 (GARDASIL)(9-45 YRS) HUMAN PAPILLOMAVIRUS VACCINE, TYPES 6, 11, 16, 18, QUADRIVALENT (4VHPV), 3 DOSE, IM 09/03/2011,07/04/2011 (IPOL)(6 WKS AND UP) POLIOVI ANAHY VACCINE, INACTIVATED (IPV), 3 DOSE, SUBCUT OR IM 08/10/2010 (M-M-R II/PRIORIX)(12 MO UP) MEASLES, MUMPS AND RUBELLA VIRUS VACCINE, 0.5 ML IM/SUBCUT 08/28/2024,03/10/2024 (RECOMBIVAX HB/ENGERIX-B)(11 YR UP) HEPATITIS B VACCINE 10 MCG/1 ML OR 20 MCG/1 ML ADOL OR ADULT 2 - 3 DOSE PF, IM 05/09/2021 (SPIKEVAX) (12 YRS UP PRIMAR Y SERIES) COVID-19 VACCINE - MRNA-1273(PF) 100 MCG/0.5 ML IM SUSP 03/30/2021,03/01/2021 (TDVAX)(7 YRS UP) TETANUS AN D DIPHTHERIA TOXOIDS, ADSORBED (2 LF OF TETANUS TOXOID AND 2 LF OF DIPHTHERIA TOXOID), 0.5ML (PF), IM 03/12/2013,03/12/2013 Hepatitis A Vaccine 12/18/2011,08/16/2010 Hepatitis B Vaccine 05/09/2021 INFLUENZA VACCINE QUADRIVALE NT 2-49 YRS NASAL 05/01/2013 INFLUENZA VACCINE QUADRIVALE NT 3 YR UP PF IM 05/27/2020 INFLUENZA VACCINE QUADRIVALE NT 6 MOS UP PF IM 04/24/2023,05/27/2020 INFLUENZA VACCINE TRIVALENT SPLIT VIRUS, (6 MOS UP), 0.5ML (PF), IM 04/30/2025,05/04/2024 Influenza Seasonal Unspecifi ed Formulation IM 04/24/2023,06/11/2022,05/09/2021,05/27,06/15/2019 Influenza Vaccine Nasal 04/30/2012,05/11/2011 Influenza Vaccine Tri Split 4+ Im 06/15/2019 Influenza Virus Vaccine, Spl it Virus (Incl. Purified Surface antigen)-retired CODE 08/10/2010 Meningococcal Polysaccharide Vaccine SQ 08/10/2010 Td(adult) Unspecified Formulation 08/12/2009 Family History Medical History Relation Name Comments Healthy Father Breast Cancer Maternal Aunt 1 Juanita 40-50 Heart Disease Maternal Aunt 1 Juanita Breast Cancer Maternal Aunt 2 Ina 40-50 Cancer Maternal Aunt 2 Ina Heart Disease Maternal Aunt 2 Ina Breast Cancer Maternal Aunt 3 40-50 Breast Cancer Maternal Aunt 4 40-50 Cataract Maternal Grandfather Santi Heart Disease Maternal Grandfather Santi Breast Cancer Maternal Grandmother Concha 2nd ti me in late 80's Cancer Maternal Grandmother Concha Cataract Maternal Grandmother Concha Diabetes Maternal Grandmother Concha Glaucoma Maternal Grandmother Concha Heart Disease Maternal Grandmother Concha Melanoma Maternal Grandmother Concha Breast Cancer Mother Aliza 2nd spot in mi d 50's Cancer Mother Aliza Depression Mother Aliza anxiety Other Mother Aliza arthritis Thyroid Disease Mother Aliza Breast Cancer Paternal Aunt Breast Cancer Paternal Grandmother Lashell Cancer Paternal Grandmother Lashell Cervical Cancer Paternal Grandmother Lashell Diabetes Paternal Grandmother Lashell Ovarian Cancer Paternal Grandmother Lashell Pancreatic Cancer Neg Hx Uterine or Endometrial Cance r, Not Including Cervical Neg Hx Relation Name Status Comments Father Maternal Aunt 1 Juanita Alive Maternal Aunt 2 Ina Alive Maternal Aunt 3 Alive Maternal Aunt 4 Alive Maternal Grandfather Santi Maternal Grandmother Concha age 50' s and again in 80's Mother Aliza Other 4/7 Maternal au nts, and 1 paternal aunt Paternal Aunt Alive Paternal Grandmother Lashell Social History Tobacco Use Types Packs/Day Years Used Date Smoking Tobacco: Never Smokeless Tobacco: Never Tobacco Cessation:Counseling Given: Not Answered Alcohol Use Standard Drinks/Week Comments Yes 0 (1 standard drink = 0.6 oz pur e alcohol) occasional Feeling Safe Answer Date Recorded Are you in a relationship wi th someone who hurts you emotionally and/or physically? No 03/22/2023 Comments No Sex and Gender Information Value Date Recorded Sex Assigned at Not on file Legal Sex Female 2:31 AM CHARM FILTER OPERATOR HELPER Gender Identity Not on file Sexual Orientation Not on file Last Filed Vital Signs Vital Sign Reading Time Taken Comments Blood Pressure 116/72 06/18/2025 11:40 AM CHARM FILTER OPERATOR HELPER Pulse 85 06/18/2025 11:40 AM CHARM FILTER OPERATOR HELPER Temperature 36.7 C (98.1 F) 06/18/2025 11:40 AM CHARM FILTER OPERATOR HELPER Respiratory Rate 16 06/18/2025 11:40 AM CHARM FILTER OPERATOR HELPER Oxygen Saturation 98% 06/18/2025 11:40 AM CHARM FILTER OPERATOR HELPER Inhaled Oxygen Concentration - - Weight 63.5 kg (140 lb) 06/18/2025 11:40 AM CHARM FILTER OPERATOR HELPER Height 160 cm (5' 3 ) 06/18/2025 11:40 AM CHARM FILTER OPERATOR HELPER Body Mass Index 24.8 06/18/2025 11:40 AM CHARM FILTER OPERATOR HELPER Plan of Treatment Upcoming Encounters Date Type Department Care Team (Late st Contact Info) Description 05/30/2026 2:30 PM CDT Office Visit [facility] O[place] [place] [address] [facility] [address] [place] [phone] Trena Dowd MD [address] [facility] [address] [place] [address] Health Maintenance Due Date Last Done Comments HPV VACCINES (3 - 3-dose series) 01/02/2012 09/03/19 12, 07/04/2011 HEPATITIS B VACCINES (2 of 3 - 19+ 3-dose series) 06/06/2021 05/09/2021, 05/09/2021 COVID-19 Vaccine (3 - 2024-2 6 season) 2025 03/30/2021, 03/01/2021 DTAP/TDAP/TD VACCINES (7 - T d or Tdap) 03/21/2028 03/21/2018, 03/21/2018, 03/12/2013, Additional history exists INFLUENZA VACCINE Completed 04/30/2025, , 04/24/2023, Additional history exists Procedures Procedure Name Priority Date/Time Associated Diagnosis Comments US HEAD NECK TISSUES Routine 06/24/2025 8:45 AM CHARM FILTER OPERATOR HELPER Family history of thyroid disease from Last 3 Months Results * US HEAD NECK TISSUES (06/24/2025 8:45 AM CHARM FILTER OPERATOR HELPER) Anatomical Region Laterality Modality Head Ultrasound 06/24/2025 8:45 AM CHARM FILTER OPERATOR HELPER Impressions 06/27/2025 5:12 PM CHARM FILTER OPERATOR HELPER IMPRESSION: 1. Unremarkable ultrasound of the thyroid. 2. No thyroid nodules are identified. Narrative 06/27/2025 5:12 PM CHARM FILTER OPERATOR HELPER EXAM: US HEAD NECK TISSUES, DATE/REASON FOR EXAM: Family history of thyroid disease. DATE AND TIME: 06/24/2025, 8:45 AM. COMPARISON: None. TECHNIQUE: Real time friedman scale and color interrogation of the thyroid gland was performed in transverse and longitudinal projections. FINDINGS: * Right thyroid lobe: The right lobe of the thyroid measures 4.1 x 1.1 x 1.5 cm (3.4 mL). Its parenchyma is normal in echotexture and demonstrates normal vascularity. No nodules are seen within the right lobe of the thyroid. * Isthmus: The isthmus measures 0.2 cm in thickness. * Left thyroid lobe: The left lobe of the thyroid measures 3.4 x 1.2 x 1.7 cm (3.7 mL). Its parenchyma is normal in echotexture and demonstrates normal vascularity. No nodules are seen within the left lobe of the thyroid. Procedure Note Brian Goyal MD - 06/27/2025 EXAM: US HEAD NECK TISSUES, DATE/REASON FOR EXAM: Family history of thyroid disease. DATE AND TIME: 06/24/2025, 8:45 AM. COMPARISON: None. TECHNIQUE: Real time friedman scale and color interrogation of the thyroid gland was performed in transverse and longitudinal projections. FINDINGS: * Right thyroid lobe: The right lobe of the thyroid measures 4.1 x 1.1 x 1.5 cm (3.4 mL). Its parenchyma is normal in echotexture and demonstrates normal vascularity. No nodules are seen within the right lobe of the thyroid. * Isthmus: The isthmus measures 0.2 cm in thickness. * Left thyroid lobe: The left lobe of the thyroid measures 3.4 x 1.2 x 1.7 cm (3.7 mL). Its parenchyma is normal in echotexture and demonstrates normal vascularity. No nodules are seen within the left lobe of the thyroid. IMPRESSION: 1. Unremarkable ultrasound of the thyroid. 2. No thyroid nodules are identified. us Alissa Dg TRANSITION PROGRAM MANAGER US ORDERABLES Final Result from Last 3 Months Insurance [facility] Care Teams Ramp Flight Attendant Relationship Specialty Start Date End Date Marsha Kim MD [address] [facility] [address] [place] [phone] PCP - General Family Practice 10/11/23
--- OUTSIDE RECORDS SUMMARY | 2025-07-14 12:23 | XMS_ITS | Clinical Summary ---
Author Organization [facility] Address [address] [place] [id number] Care Team Providers Care Director Of Religious Life Name Role Phone Taurus Matthew MD Primary Care Provider [phone] Allergies Active Allergy Reactions Criticality Noted Date Comments Codeine Nausea and Vomiting Low 03/12/2017 Levofloxacin Rash Low 03/12/2017 Penicillins Nausea and Vomiting Low 03/12/2017 Tramadol Seizure High 03/12/2017 Medications multivitamin (DAILY-JOSE) tablet Take 1 Tablet by mouth daily. Active estradioL (CLIMARA) 0.1 mg/24 hr patchIndication s:Artificial menopause state Apply 1 Patch to skin as directed every 7 days. 4 Patch 2 10/19/2019 Active Latuda 40 mg Tablet tabletIndicatio ns:Bipolar disorder, in full remission, most recent episode mixed TAKE 1 TABLET BY MOUTH ONCE DAILY WITH SUPPER 90 Tablet 2 09/14/2020 Active ALPRAZolam (XANAX) 0.5 mg tabletIndicatio ns:Generalized anxiety disorder,Bipola r disorder, in full remission, most recent episode mixed Take 1 Tablet (0.5 mg) by mouth 2 times daily as needed for Anxiety. 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 Chronic post-traumatic stress disorder 7 Overview (07/18/2017): From childhood [facility]. Resolved Problems Problem Noted Date Diagnosed Date Resolved Date Seizure 10/03/2020 Immunizations Immunization Administration Dates Next Due (ADACEL/BOOSTRIX)(10 YR UP) TDAP VACCINE, 0.5ML, IM 03/21/2018 (TDVAX)(7 YRS UP) TETANUS AN D DIPHTHERIA TOXOIDS, ADSORBED (2 LF OF TETANUS TOXOID AND 2 LF OF DIPHTHERIA TOXOID), 0.5ML (PF), IM 03/12/2013 INFLUENZA VACCINE QUADRIVALENT 3 YR UP PF IM Influenza Seasonal Unspecified Formulation IM Family History Medical History Relation Name Comments Healthy Father Cataract Maternal Grandfather Cataract Maternal Grandmother Glaucoma Maternal Grandmother Depression Mother anxiety Other Mother arthritis Thyroid Disease Mother Relation Name Status Comments Father Maternal Grandfather Maternal Grandmother Mother Social History Tobacco Use Types Packs/Day Years Used Date Smoking Tobacco: Never Smokeless Tobacco: Never Tobacco Cessation:Counseling Given: No Alcohol Use Standard Drinks/Week Comments Yes 0 (1 standard drink = 0.6 oz pur e alcohol) rare Comments No Sex and Gender Information Value Date Recorded Sex Assigned at Not on file Legal Sex Female 9:11 AM CDT Gender Identity Not on file Sexual Orientation Not on file Last Filed Vital Signs Vital Sign Reading Time Taken Comments Blood Pressure 98/62 02/01/2021 9:19 AM CDT Pulse 76 02/01/2021 9:19 AM CDT Temperature 36.8 C (98.2 F) 02/01/2021 9:19 AM CDT Respiratory Rate 16 02/01/2021 9:19 AM CDT Oxygen Saturation 97% 02/01/2021 9:19 AM CDT Inhaled Oxygen Concentration - - Weight 77.4 kg (170 lb 9.6 oz) 02/01/2021 9:19 A M CDT Height 162.6 cm (5' 4 ) 02/01/2021 9:19 AM CDT Body Mass Index 29.28 02/01/2021 9:19 AM CDT Plan of Treatment Health Maintenance Due Date Last Done Comments HEPATITIS B VACCINES (1 of 3 - 19+ 3-dose series) 2010 HPV VACCINES (2 - 3-dose series) 10/01/2011 09/03/2011, 08/17/2011 (Previously completed) HPV/Cotest (21-29) 01/11/2012 CERVICAL CANCER SCREENING 2021 HPV/Cotest (30-65) 2021 PAP SMEAR 2021 INFLUENZA VACCINE (#1) 2025 , 06/15/2019, 04/23/2018, Additional history exists DTAP/TDAP/TD VACCINES (4 - T d or Tdap) 03/21/2028 03/21/2018, 03/12/2013, 08/10/2010 Insurance Care Teams Director Of Religious Life Relationship Specialty Start Date End Date Taurus Matthew MD [address] [id number] PCP - General Family Practice 03/21/18
--- NOTE | 2025-07-14 12:25 | ECG_ITS ---
[facility]25[facility]14 Pat Name: Melania Erazo Department: Room: Gender: Female Qa Lead: : 1990 Requested By: Angel Martinez Order Number: [id number] Alfredo MD: Migel Navarro M.D. Measurements Intervals [place] Rate: 121 P: 78 SD: 142 QRS: 104 QRSD: 78 T: -32 QT: 338 QTc: 481 Interpretive Statements SINUS TACHYCARDIA RIGHT AXIS DEVIATION [QRS AXIS > 100] ST DEVIATION AND MODERATE T-WAVE ABNORMALITY, CONSIDER ANTERIOR ISCHEMIA [-0.1+ mV T-WAVE IN V3/V4] Compared to ECG 05/15/2023 19:24:00 Right-axis deviation now present Sinus rhythm no longer present Atrial abnormality no longer present T-wave abnormality still present Possible ischemia still present Electronically Signed On 07-14-2025 23:39:13 [employer] by Migel Navarro M.D. [email or web address]
[2025-07-14] MEDS: diphenhydrAMINE 50 mg/mL SDV 1mL IVP (12:38)
[2025-07-14 13:44] LABS: Thyroid Stimulating Hormone 0.71 uIU/mL (0.27-4.20)
[2025-07-14] MEDS: morphine 4 mg/mL SDV 1 mL IVP (13:49)
[2025-07-14 13:57] LABS: Hematocrit 35.4 % (36-47); Hemoglobin 12.20 g/dL (11.27-16.99); Mean Corpuscular HGB Conc 34.5 g/dL (30-55); Mean Corpuscular Hemoglobin 30.0 pg (27-33); Mean Corpuscular Volume 87.2 fl (85-98); Nucleated Red Blood Cells % 0 %; Platelet Count 156 10^3/cmm (157-399); Red Blood Count 4.06 10^6/uL (3.85-5.65); White Blood Count 3.85 10^3/uL (3.29-11.43)
[2025-07-14 14:09] LABS: Alanine Aminotransferase 12 U/L (0-33); Albumin Level 4.2 g/dL (3.5-5.2); Alkaline Phosphatase 70 U/L (35-105); Anion Gap 15.9 (5-19); Aspartate Amino Transferase 16 U/L (0-32); Blood Urea Nitrogen 12 mg/dL (6-20); Calcium 8.9 mg/dL (8.5-10.5); Carbon Dioxide 22 mmol/L (22-29); Chloride 104 mmol/L (98-107); Globulin 2.6 g/dL (1.3-4.6); Glucose 91 mg/dL (65-115); Magnesium 1.7 mg/dL (1.7-2.3); Osmolality Calculated 285 mOsm/kg (285-295); Potassium 3.9 mmol/L (3.5-5.1); Sodium 138 mmol/L (136-145); Total Protein 6.8 g/dL (6.6-8.7)
--- NOTE | 2025-07-15 10:21 | DCPLANNER ---
messaged heart care for er f/u
== END 2025-07-14 15:23 | disposition home or self-care (01) ==
PROVIDERS: Emergency Provider Family Medicine; PCP Nurse Practitioner Family
DX: G43.909 Migraine, unspecified, not intractable, without status migrainosus (principal); R00.0 Tachycardia, unspecified
CPT/HCPCS: 36415; 70450; 80053; 83735; 84443; 85025; 93005; 96361; 96365; 96366; 96375; 99285; J1100; J1200; J1885; J2270; J3490; J7030